=== PATIENT | female | born 1965 | race African-American/Black ===

== ENCOUNTER 2023-12-17 12:33 | Inpatient (IN) | payer OTHER ==
[2023-12-17 13:42] VITALS: BMI 23.0
[2023-12-17] MEDS ORDERED: TRIMETHOBENZAMIDE HCL 200MG/2ML INJ IM ONE (15:17)
[2023-12-17] MEDS: TRIMETHOBENZAMIDE HCL 200MG/2ML INJ IM ONE (15:27)
[2023-12-17] MEDS ORDERED: BENZONATATE 200 MG CAPSULE PO PRN (16:24)
[2023-12-17] MEDS ORDERED: NALOXONE (NARCAN) HCL 4 MG/0.1 ML SPRAY NS PRN (16:24)
[2023-12-17] MEDS ORDERED: LOPERAMIDE HCL 2 MG CAPSULE PO PRN (16:24)
[2023-12-17] MEDS ORDERED: guaiFENesin 600 MG TABLET.ER (FP) PO PRN (16:24)
[2023-12-17] MEDS ORDERED: NALOXONE HCL 0.4 MG/ML VIAL IM PRN (16:24)
[2023-12-17] MEDS ORDERED: BENZOCAINE/MENTHOL (CHLORASEPTIC ) LOZENGE MM PRN (16:24)
[2023-12-17] MEDS: hydrOXYzine PAMOATE 25 MG CAPSULE (FP) PO PRN (17:00)
[2023-12-17] MEDS ORDERED: hydrOXYzine PAMOATE 25 MG CAPSULE (FP) PO ONE (17:14)
[2023-12-17] MEDS: ONDANSETRON *ODT* 4 MG TABLET SL PRN (18:11)
[2023-12-17] MEDS: THIAMINE 100 MG TABLET PO SCH (22:29)
[2023-12-17] MEDS: MELATONIN 5 MG TABLETS PO SCH (22:29)
[2023-12-17] MEDS: ACETAMINOPHEN 325 MG TABLET (FP) PO PRN (22:29)
[2023-12-17] MEDS ORDERED: diazePAM 5 MG TABLET PO PRN (22:34)
[2023-12-17] MEDS: traZODone HCL 50 MG TABLET (FP) PO ONE (23:01)
[2023-12-17] MEDS: diazePAM 5 MG TABLET PO SCH (23:01)
[2023-12-18 09:27] LABS: HEMATOCRIT 40.8 % (32.4-45.2); HEMOGLOBIN 13.7 GM/dL (10.7-15.3); MCH 29.1 pg (25.7-33.7); MCHC 33.6 g/dl (32.0-36.0); MEAN CELL VOLUME 86.8 fl (80-96); MEAN PLT VOLUME 8.2 fl (7.5-11.1); PLATELET COUNT 241 10^3/uL (134-434); POTASSIUM 4.2 mmol/L (3.5-5.1); RDW 14.4 % (11.6-15.6); WHITE BLOOD COUNT 4.4 K/mm3 (4.0-10.0)
[2023-12-18 09:33] LABS: CALCIUM 9.5 mg/dL (8.5-10.1)
[2023-12-18 09:34] LABS: ALBUMIN 3.8 g/dl (3.4-5.0); BLOOD UREA NITROGEN 17.4 mg/dL (7-18)
[2023-12-18 09:36] LABS: CREATININE 1.5 mg/dL (0.55-1.3)
[2023-12-18 09:37] LABS: BILIRUBIN,TOTAL 1.4 mg/dL (0.2-1)
[2023-12-18 09:38] LABS: TOT PROT 7.4 g/dl (6.4-8.2)
[2023-12-18] MEDS: NALTREXONE HCL 50 MG TABLET PO SCH (10:30)
[2023-12-18] MEDS: metoPROLOL SUCCINATE 25 MG TAB.SR.24H (FP) PO SCH (10:30)
[2023-12-18] MEDS: PRENATAL VITAMINS W/ FOLIC ACID TABLET (FP) PO SCH (10:30)
[2023-12-18] MEDS: GABAPENTIN 400 MG CAPSULE PO SCH (14:06)
[2023-12-18] MEDS: BACLOFEN 10 MG TABLET (FP) PO SCH (14:06)
[2023-12-18] MEDS: LIDOCAINE 4% PATCH TP SCH (17:37)
[2023-12-18] MEDS: traZODone HCL 50 MG TABLET (FP) PO SCH (22:10)
[2023-12-18] MEDS: LIDOCAINE PATCH REMOVAL MC SCH (22:42)
[2023-12-19] MEDS: diazePAM 5 MG TABLET PO SCH (05:36)
[2023-12-19] MEDS ORDERED: chlordiazePOXIDE HCL 25 MG CAPSULE PO PRN (10:07)
[2023-12-19] MEDS: chlordiazePOXIDE HCL 10 MG CAPSULE PO SCH (10:38)
[2023-12-19] MEDS ORDERED: ALBUTEROL SO4 HFA INHALER IH PRN (12:54)
[2023-12-19] MEDS: FAMOTIDINE 20 MG TABLET PO SCH (13:29)
[2023-12-19] MEDS: METHOCARBAMOL 500 MG TABLET PO PRN (17:30)
[2023-12-19] MEDS: MAGNESIUM HYDROX 2400MG/30ML ORAL SUSPENSION 30 ML CUP PO PRN (18:52)
[2023-12-19] MEDS: ACETAMINOPHEN 325 MG TABLET (FP) PO ONE (20:29)
[2023-12-19] MEDS: ACETAMINOPHEN 325 MG TABLET (FP) PO PRN (22:04)
[2023-12-20] MEDS: chlordiazePOXIDE HCL 10 MG CAPSULE PO SCH (05:44)
[2023-12-20] MEDS ORDERED: diazePAM 5 MG TABLET PO SCH (06:00)
[2023-12-20] MEDS: POLYETHYLENE GLYCOL (HEALTHYLAX) 3350 17 GM PACKET PO PRN (06:01)
[2023-12-20] MEDS: LEVOTHYROXINE NA 25 MCG TABLET (FP) PO SCH (06:14)
[2023-12-20] MEDS: BISACODYL 5 MG TABLET.DR (FP) PO ONE (10:34)
[2023-12-20] MEDS: METHOCARBAMOL 500 MG TABLET PO PRN (11:54)
[2023-12-20] MEDS: MAG HYDROX/AL HYDROX/SIMETH 30 ML UNIT-DOSE CUP PO PRN (23:15)
[2023-12-21] MEDS: chlordiazePOXIDE HCL 10 MG CAPSULE PO ONE (05:35)
[2023-12-21] MEDS ORDERED: diazePAM 5 MG TABLET PO ONE (06:00)
[2023-12-21] MEDS: GABAPENTIN 300 MG CAPSULE PO SCH (13:13)
[2023-12-21 16:24] LABS: BASO % 0.5 % (0-2.0); EOS % 1.1 % (0-4.5); HEMOGLOBIN 11.2 GM/dL (10.7-15.3); LYMPH % 26.7 % (8-40); MCH 28.9 pg (25.7-33.7); MEAN CELL VOLUME 90.5 fl (80-96); MEAN PLT VOLUME 8.8 fl (7.5-11.1); MONO % 7.5 % (3.8-10.2); NEUT % 64.2 % (42.8-82.8); PLATELET COUNT 129 10^3/uL (134-434); RBC 3.87 M/mm3 (3.60-5.2); RDW 14.3 % (11.6-15.6); WHITE BLOOD COUNT 3.4 K/mm3 (4.0-10.0)
[2023-12-21 16:25] LABS: POTASSIUM 4.5 mmol/L (3.5-5.1)
[2023-12-21 16:26] LABS: BLOOD UREA NITROGEN 18.4 mg/dL (7-18); CALCIUM 8.5 mg/dL (8.5-10.1)
[2023-12-21 16:30] LABS: CREATININE 0.9 mg/dL (0.55-1.3)
[2023-12-22 08:46] VITALS: BP 116/67; PULSE 68; RESP 18; TEMP 97.4
[2023-12-22] MEDS: chlordiazePOXIDE 5 MG CAPSULE PO ONE (09:16)
== END 2023-12-22 14:55 | disposition home or self-care (01) | DRG 645 ==
LOC: YASAS 12:33 → Y3N 16:21
PROVIDERS: ADMIT Allergy & Immunology; ATTEND Surgery
PROC: HZ2ZZZZ Detoxification Services for Substance Abuse Treatment (ICD-10-PCS; principal; 2023-12-17)
DX: E03.9 Hypothyroidism, unspecified (principal); K21.9 Gastro-esophageal reflux disease without esophagitis; J45.909 Unspecified asthma, uncomplicated; R00.0 Tachycardia, unspecified; G47.00 Insomnia, unspecified; M54.59 Other low back pain; G89.29 Other chronic pain; Z87.891 Personal history of nicotine dependence; Z98.84 Bariatric surgery status; Z96.641 Presence of right artificial hip joint
CPT/HCPCS: 36415; 80048; 80053; 80305; 80307; 84439; 84443; 84480; 84481; 85025; 85027; 86780; 87811; 93005; 93010; J0475; Q0162